=== PATIENT | male | born 2000 | race Caucasian/White ===

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

== ENCOUNTER 2019-03-23 14:18 | Emergency (ER) | payer SELFPAY ==
[~2019-03-23] VITALS: Ht 177.8 cm; Wt 64.4 kg
[2019-03-23 14:28] VITALS: BP 121/67
--- NOTE | 2019-03-23 14:33 | NUR ---
BIB SELF. AAO X4 C/O SORE THROAT X THIS MORNING, -N/V/D. PT STATES THAT HE HAS RECURRENT SORE THROAT. PT DENIES SOB. PT STATES PAIN WHEN SWALLOWING /10. MILD SWELLING AND REDNESS TO TONSILS NOTED. HOB UP. BED SIDE RAILS UP X1. ON LOW BED POSITION, LOCKED. ER MADE AWARE OF PT STATUS.
--- NOTE | 2019-03-23 14:33 | NUR ---
PATIENT AMBULATED TO BED 8
[2019-03-23] MEDS ORDERED: PENICILLIN G BENZATHINE L-A 1.2 MU/2 ML SYR IM ONE (15:25)
[2019-03-23] MEDS ORDERED: KETOROLAC 60 MG/2 ML VIAL IM ONE (15:25)
--- NOTE | 2019-03-23 15:25 | NUR ---
DR QUEVEDO AT BEDSIDE FOR PT EVALUATION
[2019-03-23 16:11] VITALS: BP 124/66
--- NOTE | 2019-03-23 16:11 | NUR ---
Patient discharged with v/s stable. Written and verbal after care instructions given and explained. Patient alert, oriented and verbalized understanding of instructions. Ambulatory with steady gait. All questions addressed prior to discharge. ID band removed. Patient advised to follow up with PMD. Rx of Prednisone, Motrin given. Patient educated on indication of medication including possible reaction and side effects. Opportunity to ask questions provided and answered.
== END 2019-03-23 16:11 | disposition home or self-care (01) ==
LOC: MED 14:18
DX: J02.0 Streptococcal pharyngitis (principal); Z79.899 Other long term (current) drug therapy
CPT/HCPCS: 96372; 99283; J0561; J1885